=== PATIENT | female | born 2000 | race Caucasian/White ===

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

== ENCOUNTER 2023-12-27 15:19 | Outpatient (CLI) | payer OTHER | END 2023-12-27 15:20 | disposition home or self-care (01) | LOC: SCSRAD 15:19 | PROVIDERS: ATTEND Physician Assistant | DX: S49.91XA Unspecified injury of right shoulder and upper arm, initial encounter (principal) ==